=== PATIENT | female | born 1945 | race Caucasian/White ===

== ENCOUNTER → 2022-05-16 | Outpatient (CLI) | payer MEDICARE, OTHER ==
[~2022-05-16] MED LIST: ASCO500; ASCO500 PO; ASPI81EC PO; Amlodipine Besyl5 MG PO; Aspir 8181 MG; CALCAVITD; CALCIUM; DOCU100; IBUP400; IBUP400 PO; LEVFLO500 PO; LISI20; LISI20 PO; LOSHYD100 PO; LOVA20; LOVA20 PO; Lovastatin20 MG PO; MAGNESIUM; MAGNESIUM PO; POTCHL20ER PO; UBID100 PO
== END | disposition home or self-care (01) ==
LOC: LAB SHORT 08:27 → PLD 08:27
DX: B35.1 Tinea unguium (principal); L60.2 Onychogryphosis
CPT/HCPCS: 88305; 88312